=== PATIENT | female | born 1970 | race Caucasian/White ===

== ENCOUNTER 2019-05-27 16:04 | Emergency (ER) | payer SELFPAY ==
[2019-05-27] MEDS ORDERED: ASPIRIN 81 MG TABLET, CHEWABLE PO ONE (16:38)
[2019-05-27] MEDS ORDERED: ONDANSETRON 4 MG TAB.RAPDIS PO ONE (16:38)
--- NOTE | 2019-05-27 16:40 | ER Document Report ---
ED Medical Screen (RME) - General Chief Complaint: Chest Pain Stated Complaint: CHEST PAIN Time Seen by Provider: 05/27/19 16:35 Mode of Arrival: Ambulatory Information source: Patient Notes: 48-year-old female presents emergency department with complaints nausea vomiting chest pain diarrhea. Patient reports she had some diarrhea this morning and coughing. She reports she took some Imodium. Later on she started developing chest pain. She reports now she has some pressure pain burning to the center of her chest with nausea and reports she just vomited. Denies history of cardiac disease. Did not receive her flu vaccine. I have greeted and performed a rapid initial assessment of this patient. A comprehensive ED assessment and evaluation of the patient, analysis of test results and completion of the medical decision making process will be conducted by additional ED providers. TRAVEL OUTSIDE OF THE [place] IN LAST 30 DAYS: No - Related Data Allergies/Adverse Reactions: No Known Allergies Allergy (Verified 05/27/19 16:35) Past Medical History Renal/ Medical History: Denies: Hx Peritoneal Dialysis Physical Exam - Vital signs Vitals: Temp Pulse Resp BP Pulse Ox 97.7 F 84 18 111/62 98 05/27/19 16:14 05/27/19 16:14 05/27/19 16:14 05/27/19 16:14 05/27/19 16:14 Course - Vital Signs Vital signs: Temp Pulse Resp BP Pulse Ox 97.7 F 84 18 111/62 98 05/27/19 16:14 05/27/19 16:14 05/27/19 16:14 05/27/19 16:14 05/27/19 16:14
--- NOTE | 2019-05-27 17:47 | RADIOLOGY REPORT (SQ) ---
EXAM DESCRIPTION: CHEST 2 VIEWS COMPLETED DATE/TIME: 05/27/2019 5:30 pm REASON FOR STUDY: chest pain COMPARISON: None. EXAM PARAMETERS: NUMBER OF VIEWS: two views TECHNIQUE: Digital Frontal and Lateral radiographic views of the chest acquired. RADIATION DOSE: NA LIMITATIONS: none FINDINGS: LUNGS AND PLEURA: No opacities, masses or pneumothorax. No pleural effusion. MEDIASTINUM AND HILAR STRUCTURES: No masses or contour abnormalities. HEART AND VASCULAR STRUCTURES: Heart normal size. No evidence for failure. BONES: No acute findings. HARDWARE: None in the chest. OTHER: No other significant finding. IMPRESSION: NO ACUTE RADIOGRAPHIC FINDING IN THE CHEST. TECHNICAL DOCUMENTATION: JOB ID: [id number] [id number]- All Rights Reserved Reading location - IP/workstation name: [address]
[2019-05-27 18:12] LABS: HEMATOCRIT 35.7 % (36.0-47.0); HEMOGLOBIN 11.1 g/dL (12.0-15.5); MEAN CORPUSCULAR HEMOGLOBIN 21.3 pg (27.0-33.4); MEAN CORPUSCULAR HGB CONC 31.1 g/dL (32.0-36.0); MEAN CORPUSCULAR VOLUME 69 fl (80-97); PLATELET COUNT 268 10^3/uL (150-450); RED BLOOD COUNT 5.21 10^6/uL (3.72-5.28); RED CELL DISTRIBUTION WIDTH 18.5 % (11.5-14.0); WHITE BLOOD COUNT 13.6 10^3/uL (4.0-10.5)
[2019-05-27 18:23] LABS: ALBUMIN 4.6 g/dL (3.5-5.0); ALKALINE PHOSPHATASE 87 U/L (38-126); ANION GAP 11 (5-19); ASPARTATE AMINO TRANSFERASE 110 U/L (14-36); BILIRUBIN,DIRECT 0.2 mg/dL (0.0-0.4); BILIRUBIN,TOTAL 0.6 mg/dL (0.2-1.3); BLOOD UREA NITROGEN 16 mg/dL (7-20); CALCIUM 9.2 mg/dL (8.4-10.2); CARBON DIOXIDE 22 mmol/L (22-30); CHLORIDE 108 mmol/L (98-107); GLUCOSE 96 mg/dL (75-110); POTASSIUM 4.6 mmol/L (3.6-5.0); TOTAL PROTEIN 7.6 g/dL (6.3-8.2)
[2019-05-27 18:39] LABS: ABSOLUTE LYMPHOCYTES# (MANUAL) 0.4 10^3/uL (0.5-4.7); ABSOLUTE MONOCYTES # (MANUAL) 0.5 10^3/uL (0.1-1.4); BASOPHILS % (MANUAL) 0 % (0-2); EOSINOPHILS % (MANUAL) 1 % (0-6); LYMPHOCYTES % (MANUAL) 3 % (13-45); MONOCYTES % (MANUAL) 4 % (3-13); SEGMENTED NEUTROPHILS % (MAN) 92 % (42-78); TOTAL CELLS COUNTED 100
--- NOTE | 2019-05-27 18:40 | ER Document Report ---
ED Cardiac - General Chief Complaint: Nausea/Vomiting/Diarrhea Stated Complaint: CHEST PAIN Time Seen by Provider: 05/27/19 16:35 Primary Care Provider: DWAYNE [facility] [Provider Group] - Follow up in 1 week [facility] [Provider Group] - Follow up in 1 week Mode of Arrival: Ambulatory Notes: Patient is a 48-year-old female who presents to the emergency department with a chief complaint of chest pain. Her chest pain started around 3:00 this afternoon. She states it in the middle of her chest, into the epigastric area. She also had a bout of nausea earlier. She also states that she had some diarrhea at the same time. Patient states that her son had diarrhea recently also. Patient also has another complaint of pustules noted to bilateral breasts. She states that she gets these around her menstrual cycle. Denies any fever, body aches, or chills. TRAVEL OUTSIDE OF THE [place] IN LAST 30 DAYS: No - Related Data Allergies/Adverse Reactions: No Known Allergies Allergy (Verified 05/27/19 16:35) Past Medical History - General Information source: Patient - Social History Smoking Status: Current Every Day Smoker Chew tobacco use (# tins/day): No Frequency of alcohol use: None Drug Abuse: None Family History: Reviewed & Not Pertinent Patient has suicidal ideation: No Patient has homicidal ideation: No Renal/ Medical History: Denies: Hx Peritoneal Dialysis Past Surgical History: Reports: Hx Section Review of Systems - Review of Systems Notes: REVIEW OF SYSTEMS: CONSTITUTIONAL : Denies recent illness. Denies recent unintentional weight loss. Denies fever, chills, or sweats. EENT: Denies eye, ear, throat, or mouth pain, discharge, or symptoms. Denies nasal or sinus congestion. CARDIOVASCULAR: See HPI. RESPIRATORY: Denies shortness of breath, cough, congestion, difficulty breathing, or wheezing. GASTROINTESTINAL: See HPI. GENITOURINARY: Denies difficulty urinating, burning, blood in urine, urgency or frequency. MUSCULOSKELETAL: Denies neck and back pain. Denies joint pain or swelling. SKIN: See HPI. HEMATOLOGIC : Denies easy bruising or bleeding. LYMPHATIC: Denies swollen, painful, enlarged glands. NEUROLOGICAL: Denies no numbness or tingling denies weakness. Denies headache. Denies altered mental status. Denies alteration in speech. PSYCHIATRIC: Denies stress, anxiety, alteration in sleep patterns, or depression. All other systems reviewed and negative. Physical Exam - Vital signs Vitals: Temp Pulse Resp BP Pulse Ox 97.7 F 84 18 111/62 98 05/27/19 16:14 05/27/19 16:14 05/27/19 16:14 05/27/19 16:14 05/27/19 16:14 - Notes Notes: PHYSICAL EXAMINATION: GENERAL: Appears well, healthy, well-nourished, no acute distress. HEAD: Normocephalic, atraumatic. EYES: PERRL, conjunctiva normal, all extraocular movements intact, sclera nonicteric ENT: Moist mucous membranes. NECK: Supple, no noticeable swelling, redness, rash. Normal range of motion. LUNGS: Equal breath sounds bilaterally and clear to auscultation. No wheezes rales or rhonchi. CARDIOVASCULAR: S1-S2, regular rate, regular rhythm. Radial pulses 2+, normal. ABDOMEN: Normoactive bowel sounds. Soft, nontender, no guarding, no rebound tenderness, and no masses palpated. EXTREMITIES: Normal strength and range of motion, no pitting or edema. No cyano sis. NEUROLOGICAL: Moves all extremities upon command. Strength 5/5 in all extremities. PSYCH: Normal mood, normal affect. SKIN: Warm, dry. Old small pustules that are now drained noted to bilateral breasts. Normal skin turgor. Course - Re-evaluation Re-evalutation: Differential diagnosis for the patient's chest pain includes ischemic chest pain (STEMI, NSTEMI, or unstable angina), pulmonary embolism, aortic dissection, pericarditis, chest wall pain. Based off patient's physical exam, history, EKG that does not show ST depressions or elevations, and troponin, the patient's heart score is 3 or less. Chest x-ray is negative for pneumonia, widened mediastinum, or pneumothorax. I do not suspect aortic dissection due to history, symmetrical pulses, chest x- ray, and vital signs. HEART Score: History:1 EK Age:1 Risk Factors:0 Troponin:0 Total: 2 Patient's hematology shows a leukocytosis of patient's chemistries are unremarkable. Hematology shows a white blood cell count of 13,600. She is slightly anemic with a hemoglobin of 11.1 and hematocrit of 35.7. Patient does have pustules with cellulitis noted to her chest. This may be the cause of her slight leukocytosis. She will be started on antibiotics. [facility]. I have discussed with the patient the risk factors, age, and diagnostic studies. Based on these factors, the likelihood of the patient's chest pain being from a heart attack is a very low. Patient is able to make decisions for themself and verbalized understanding that their chest pain is most likely not due to heart attack. The patient has chosen to follow-up with a aligning inspector in regards to their chest pain. Verbal instructions for return to the emergency department was given, and patient verbalized understanding and will be discharged. - Vital Signs Vital signs: Temp Pulse Resp BP Pulse Ox 98.8 F 91 18 109/72 97 05/27/19 20:55 05/27/19 20:55 05/27/19 20:55 05/27/19 20:55 05/27/19 20:55 - Laboratory Result Diagrams: 05/27/19 17:45 05/27/19 17:45 Laboratory results interpreted by me: 05/27/19 05/27/19 17:45 17:45 WBC 13.6 H Hgb 11.1 L Hct 35.7 L MCV 69 L MCH 21.3 L MCHC 31.1 L RDW 18.5 H Seg Neuts % (Manual) 92 H Lymphocytes % (Manual) 3 L Abs Neuts (Manual) 12.5 H Abs Lymphs (Manual) 0.4 L Chloride 108 H AST 110 H - EKG Interpretation by Me Additional EKG results interpreted by me: Sinus rhythm. Heart rate 84. VT 152; QRS 76; QT 360; QTc 426. No ST elevations or depressions noted. Discharge - Discharge Clinical Impression: Rash Chest pain Qualifiers: Chest pain type: unspecified Qualified Code(s): R07.9 - Chest pain, unspecified Vomiting Qualifiers: Vomiting type: unspecified Vomiting Intractability: unspecified Nausea presence: without nausea Qualified Code(s): R11.11 - Vomiting without nausea Diarrhea Qualifiers: Diarrhea type: unspecified type Qualified Code(s): R19.7 - Diarrhea, unspecified Condition: Stable Disposition: HOME, SELF-CARE Additional Instructions: You were seen today in the emergency department for chest pain. You most likely have a viral infection, but ended up making you vomit and have diarrhea. Your labs are reassuring. You are being placed on antibiotics for the rash on your breasts. Please follow-up with a primary care provider in regards to this visit. You can follow-up with 1 of the clinics below if you are unable to establish a primary care provider. Prescriptions: Sulfamethoxazole/Trimethoprim [Bactrim Ds Tablet] 1 each PO BID 7 Days #14 tablet Cephalexin Monohydrate [Keflex 500 mg Capsule] 500 mg PO Q6H 7 Days capsule Referrals: [facility] [Provider Group] - Follow up in 1 week [facility] [Provider Group] - Follow up in 1 week
[2019-05-27 18:41] LABS: ANISOCYTOSIS 2+; OVALOCYTES SLIGHT; PLATELET COMMENT ADEQUATE
--- NOTE | 2019-05-27 19:27 | EKG REPORT ---
SEVERITY:- NORMAL ECG - SINUS RHYTHM : Confirmed by: Jazmin Riggins MD 27-May-2019 19:26:34
[2019-05-27] MEDS ORDERED: CEPHALEXIN 500 MG CAPSULE PO ONE (20:48)
[2019-05-27] MEDS ORDERED: ONDANSETRON ODT 4 MG TAB (6 TAB/ER DISP) PO PRN (20:52)
[2019-05-27 20:57] VITALS: BP 109/72
== END 2019-05-27 21:01 | disposition home or self-care (01) ==
LOC: ER 16:04
DX: R21 Rash and other nonspecific skin eruption (principal); R07.9 Chest pain, unspecified; R11.11 Vomiting without nausea; R19.7 Diarrhea, unspecified; F17.200 Nicotine dependence, unspecified, uncomplicated
CPT/HCPCS: 93005; 99285; 36415; 85025; 80053; 84484; 71046; 93010; S0119